=== PATIENT | male | born 1995 | race Two or more races ===

== ENCOUNTER 2016-05-10 06:48 | Emergency (ER) | payer OTHER ==
[2016-05-10] MEDS ORDERED: METOCLOPRAMIDE 10 MG TAB As Ordered ONE (07:43)
[2016-05-10] MEDS ORDERED: ACETAMINOPHEN 325 MG TAB As Ordered ONE (07:44)
--- NOTE | 2016-05-10 08:17 | REP ---
Clinical: New onset headache . Comparison: None . Findings: The ventricles, sulci, and cisterns are normal in position and appearance. Hector-white differentiation is maintained. No acute intracranial hemorrhage, mass/mass effect, pathology or trauma/injury. No evidence for acute infarction. No extra-axial fluid collection. Calvarium is intact. Paranasal sinuses and mastoid air cells are clear. Impression: Normal noncontrast head CT. No evidence for acute intracranial pathology or trauma/injury. Signed by Constantnio Salazar MD 05/10/2016 08:08 A
[2016-05-10 08:21] LABS: ALBUMIN 4.1 GM/DL (3.2-5.2); ALBUMIN/GLOBULIN RATIO 1.08 (1.00-1.93); ALKALINE PHOSPHATASE 83 U/L (45-117); ALT/SGPT 46 U/L (12-78); ANION GAP 8 MEQ/L (8-16); AST/SGOT 18 U/L (15-37); BILIRUBIN,TOTAL 0.2 MG/DL (0.2-1.0); BLOOD UREA NITROGEN 14 MG/DL (7-18); CALCIUM LEVEL 9.2 MG/DL (8.5-10.1); CARBON DIOXIDE LEVEL 27 MEQ/L (21-32); CHLORIDE LEVEL 111 MEQ/L (98-107); CREATININE FOR GFR 1.22 MG/DL (0.70-1.30); GLOMERULAR FILTRATION RATE > 60.0 (>60); GLUCOSE, FASTING 117 MG/DL (70-105); POTASSIUM SERUM 4.4 MEQ/L (3.5-5.1); SODIUM LEVEL 146 MEQ/L (136-145); TOTAL PROTEIN 7.9 GM/DL (6.4-8.2)
[2016-05-10 08:42] LABS: BASO % 0.5 % (0.0-1.0); EOS # 0.1 K/mm3 (0.0-0.50); EOS % 0.8 % (0.0-3.0); LARGE UNSTAINED CELL # 0.3 K/mm3 (0.0-0.4); LARGE UNSTAINED CELL % 3.1 % (0.0-4.0); LYMPH # 2.7 K/mm3 (1.5-6.5); LYMPH % 31.7 % (24.0-44.0); MEAN CORPUSCULAR HEMOGLOBIN 27.4 pg (27.0-33.0); MEAN CORPUSCULAR HGB CONC 32.5 g/dl (32.0-36.5); MEAN CORPUSCULAR VOLUME 84.3 fl (80.0-96.0); MONO # 0.7 K/mm3 (0.0-0.8); MONO % 8.5 % (0.0-5.0); NEUTROPHILS # 4.8 K/mm3 (1.8-7.7); NEUTROPHILS % 55.4 % (36.0-66.0); PLATELET COUNT, AUTOMATED 248 k/mm3 (150-450); RED CELL DISTRIBUTION WIDTH 13.6 % (11.5-14.5); WHITE BLOOD COUNT 8.7 K/mm3 (4.0-10.0)
[2016-05-10] MEDS ORDERED: AZITHROMYCIN 250 MG TAB As Ordered ONE (09:11)
--- NOTE | 2016-05-10 09:20 | EDDOCDS ---
Nurse's Notes [facility] Name: Clfif Vasquez Age: 21 yrs Sex: Male : 1995 Arrival Date: 05/10/2016 Time: 06:48 Bed I2 / M2 Private MD: Diagnosis: Acute sinusitis;Headache-Acute Presentation: 05/10 06:51 Presenting complaint: Patient states: for the past 3 weeks he gets a massive headache nn1 during intercourse. Patient reports tightening of the neck at this time. Reports mild headache at this time. Headaches last a long time following intercourse, relieved with sleep or ibuprofen. This patient has no additional risk factors. Suicide/Homicide risk assessment- the patient denies having any suicidal and/or homicidal ideations and does not present with any other emotional, behavioral or mental health complaints. 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 Transition of care: patient was not received from another setting of care. 06:51 Acuity: SUZETTE Level 4 nn1 06:51 Method Of Arrival: Walkin/Carried/Asstd nn1 09:18 Adult Sepsis Screening: The patient does not have new or worsening altered mentation. ead Patient's respiratory rate is less than 22. Systolic blood pressure is greater than 100. Patient has a qSOFA score of 0- Negative Sepsis Screen. Triage Assessment: 06:56 Headache History: This headache is more severe than any previous headaches the patient nn1 has experienced. General: Appears in no apparent distress, comfortable, Behavior is appropriate for age, cooperative. Pain: Location: head Pain currently is 3 out of 10 on a pain scale. At worst was 10 out of 10 on a pain scale. Pain began 3 weeks ago Also complains of no other associated symptoms. HIV screening NA for this visit Offered previously. The patient is triaged at the bedside. See Assessment in Nurses Notes section of ED record. Neurological: Level of Consciousness is awake, alert, obeys commands, Oriented to person, place, time, Moves all extremities. Speech is normal, Facial symmetry appears normal, Respiratory: No deficits noted. Derm: Skin is normal. Historical: - Allergies: No known drug Allergies; - Home Meds: 1. none - PMHx: none; - PSHx: none; - Social history: Smoking status: Patient uses tobacco products, heavy tobacco smoker. No barriers to communication noted, The patient speaks fluent Estonian, Speaks appropriately for age. - Family history: Not pertinent. - : The pt / caregiver states he / she is not on anticoagulants. Home medication list is obtained from the patient. - Exposure Risk Screening:: None identified. Screenin:57 Screening information is obtained from the patient. Fall risk: No risks identified. jmk Assistance ADL's: requires no assistance with activities of daily living. Abuse/DV Screen: The patient / caregiver reports he/she is: not in a situation that causes fear, pain or injury. Nutritional screening: No deficits noted. Advance Directives: Currently, there is no health care proxy. There is no active DNR order. There is no living will. There is no Power of Motor Racer. Advance directive information has not previously been placed in an [facility] medical record. home support is adequate. Assessment: 07:57 General: Appears in no apparent distress, skin warm and dry color satisfactory. Moist jmk pink oral mucosa. Indicates 3/10 discomfort to occipital region. alert and oriented x 3. denies photophobia. Pain: Location: left occipital area and right occipital area. Neurological: Level of Consciousness is awake, alert, Oriented to person, place, time. 09:10 General: Appears in no apparent distress, comfortable. Neurological: Level of ead Consciousness is awake, alert, Oriented to person, place, time. Respiratory: Airway is patent Respiratory effort is even, unlabored. Derm: Skin is pink, warm & dry. Vital Signs: 06:54 BP 167 / 80; Pulse 102; Resp 18; Temp 98.4; Pulse Ox 98% on R/A; Weight 99.79 kg; nn1 Height 5 ft. 5 in. (165.10 cm); Pain 3/10; 07:31 BP 134 / 78 LA Sitting (man/lg); Pulse 84; Resp 18; nb2 09:07 BP 139 / 69; Pulse 87; Resp 18; Temp 98.6(O); Pulse Ox 97% on R/A; Pain 0/10; nb2 06:54 Body Mass Index 36.61 (99.79 kg, 165.10 cm) nn1 Vitals: 06:54 Log In Time: May 10, 2016 at 06:50. nn1 ED Course: 06:49 Patient visited by Saida Landry Reg. hs2 06:49 Patient moved to Waiting hs2 06:53 Triage Initiated nn1 07:02 Patient moved to I2 / M2 mcp 07:07 Dayna Bazan PA-C is PHCP. ef1 07:07 Heidi Beltran MD is Attending Physician. ef1 07:07 Patient visited by Dayna Bazan PA-C. ef1 07:31 Patient visited by Delicia Griffin. nb2 07:51 CBC with Diff Sent. nb2 07:51 Complete Comphrensive Metabolic Sent. nb2 07:57 The patient / caregiver is instructed regarding the plan of care and ED course. jmk 07:57 No IV's were initiated during this patient's visit. jmk 08:21 Patient name changed from Cliff\S\\S\Vasquez Jr\S\ to Cliff\S\R\S\Vasquez. EDMS 08:32 Patient visited by Dayna Bazan PA-C. ef1 08:43 CT Head Without Contrast Returned. EDMS 08:49 [facility] Payment Agreement was scanned into [email or web address] and attached to record. lg 08:58 Patient visited by Dayna Bazan PA-C. ef1 09:03 [facility] is Referral Physician. ef1 09:08 Patient visited by Delicia Griffin. nb2 09:16 No procedures done that require assistance. ead Administered Medications: 07:54 Drug: Metoclopramide 10 mg [metoclopramide 10 mg tablet (1 tabs)] Route: PO; jmk 07:54 Drug: Acetaminophen 975 mg [acetaminophen 325 mg tablet (3 tabs)] Route: PO; jmk 09:12 Drug: azithromycin 500 mg [azithromycin 250 mg tablet (2 tabs)] Route: PO; ead Order Results: Lab Order: CBC with Diff; SPEC'M 05/10/16 07:50 Test: WHITE BLOOD COUNT; Value: 8.7; Range: 4.0-10.0; Units: K/mm3; Status: F Test: RED BLOOD COUNT; Value: 5.61; Range: 4.30-6.10; Units: M/mm3; Status: F Test: HEMOGLOBIN; Value: 15.4; Range: 14.0-18.0; Units: g/dl; Status: F Test: HEMATOCRIT; Value: 47.3; Range: 42.0-52.0; Units: %; Status: F Test: MEAN CORPUSCULAR VOLUME; Value: 84.3; Range: 80.0-96.0; Units: fl; Status: F Test: MEAN CORPUSCULAR HEMOGLOBIN; Value: 27.4; Range: 27.0-33.0; Units: pg; Status: F Test: MEAN CORPUSCULAR HGB CONC; Value: 32.5; Range: 32.0-36.5; Units: g/dl; Status: F Test: RED CELL DISTRIBUTION WIDTH; Value: 13.6; Range: 11.5-14.5; Units: %; Status: F Test: PLATELET COUNT, AUTOMATED; Value: 248; Range: 150-450; Units: k/mm3; Status: F Test: NEUTROPHILS %; Value: 55.4; Range: 36.0-66.0; Units: %; Status: F Test: LYMPH %; Value: 31.7; Range: 24.0-44.0; Units: %; Status: F Test: MONO %; Value: 8.5; Range: 0.0-5.0; Abnormal: Above high normal; Units: %; Status: F Test: EOS %; Value: 0.8; Range: 0.0-3.0; Units: %; Status: F Test: BASO %; Value: 0.5; Range: 0.0-1.0; Units: %; Status: F Test: LARGE UNSTAINED CELL %; Value: 3.1; Range: 0.0-4.0; Units: %; Status: F Test: NEUTROPHILS #; Value: 4.8; Range: 1.8-7.7; Units: K/mm3; Status: F Test: LYMPH #; Value: 2.7; Range: 1.5-6.5; Units: K/mm3; Status: F Test: MONO #; Value: 0.7; Range: 0.0-0.8; Units: K/mm3; Status: F Test: EOS #; Value: 0.1; Range: 0.0-0.50; Units: K/mm3; Status: F Test: BASO #; Value: 0.0; Range: 0.0-0.2; Units: K/mm3; Status: F Test: LARGE UNSTAINED CELL #; Value: 0.3; Range: 0.0-0.4; Units: K/mm3; Status: F Lab Order: Complete Comphrensive Metabolic; SPEC'M 05/10/16 07:50 Test: GLUCOSE, FASTING; Value: 117; Range: 70-105; Abnormal: Above high normal; Units: MG/DL; Status: F Test: BLOOD UREA NITROGEN; Value: 14; Range: 7-18; Units: MG/DL; Status: F Test: CREATININE FOR GFR; Value: 1.22; Range: 0.70-1.30; Units: MG/DL; Status: F Test: GLOMERULAR FILTRATION RATE; Value: > 60.0; Range: >60; Status: F Test: SODIUM LEVEL; Value: 146; Range: 136-145; Abnormal: Above high normal; Units: MEQ/L; Status: F Test: POTASSIUM SERUM; Value: 4.4; Range: 3.5-5.1; Units: MEQ/L; Status: F Test: CHLORIDE LEVEL; Value: 111; Range: 98-107; Abnormal: Above high normal; Units: MEQ/L; Status: F Test: CARBON DIOXIDE LEVEL; Value: 27; Range: 21-32; Units: MEQ/L; Status: F Test: ANION GAP; Value: 8; Range: 8-16; Units: MEQ/L; Status: F Test: CALCIUM LEVEL; Value: 9.2; Range: 8.5-10.1; Units: MG/DL; Status: F Test: AST/SGOT; Value: 18; Range: 15-37; Units: U/L; Status: F Test: ALT/SGPT; Value: 46; Range: 12-78; Units: U/L; Status: F Test: ALKALINE PHOSPHATASE; Value: 83; Range: 45-117; Units: U/L; Status: F Test: BILIRUBIN,TOTAL; Value: 0.2; Range: 0.2-1.0; Units: MG/DL; Status: F Test: TOTAL PROTEIN; Value: 7.9; Range: 6.4-8.2; Units: GM/DL; Status: F Test: ALBUMIN; Value: 4.1; Range: 3.2-5.2; Units: GM/DL; Status: F Test: ALBUMIN/GLOBULIN RATIO; Value: 1.08; Range: 1.00-1.93; Status: F Test Note: ; Units are mL/min/1.73 m2 Chronic Kidney Disease Staging per NKF: Stage I & II GFR >=60 Normal to Mildly Decreased Stage III GFR 30-59 Moderately Decreased Stage IV GFR 15-29 Severely Decreased Stage V GFR <15 Very Little GFR Left ESRD GFR <15 on COPYHOLDER Radiology Order: CT Head Without Contrast Test: CT Head Without Contrast REASON FOR EXAMINATION: new onset headaches; Clinical: New onset headache .; ; Comparison: None .; ; Findings:; The ventricles, sulci, and cisterns are normal in position and appearance.; Hector-white differentiation is maintained. No acute intracranial hemorrhage,; mass/mass effect, pathology or trauma/injury. No evidence for acute infarction.; No extra-axial fluid collection. Calvarium is intact. Paranasal sinuses and; mastoid air cells are clear.; ; Impression:; Normal noncontrast head CT.; No evidence for acute intracranial pathology or trauma/injury.; ; ; Signed by; Constantino Salazar MD 05/10/2016 08:08 A; Outcome: 09:03 Discharge ordered by Provider. ef1 09:16 Discharge Assessment: Patient awake and alert. obeys commands, Oriented to person, ead place and time. patient administered narcotics - no. The following High Risk Discharge criteria are identified: None. Discharged to home ambulatory, with significant other. Condition: improved. Discharge instructions given to patient, Instructed on discharge instructions, follow up and referral plans. medication usage, Demonstrated understanding of instructions, medications, Pt was receptive of discharge instructions/ teaching. Prescriptions given X 5. CT Study completed. Property sent home with patient. 09:18 Patient left the ED. ead Signatures: Dispatcher [employer] EDMS Donato Coronel RN RN jmk Peters, Mary, RN RN mcp Ganter, LoriLee, Reg Reg lg Dayna Bazan, PA-C PA-C ef1 Risa Khan RN RN ead Nunez, Nikkole, RN RN nn1 Saida Landry, Reg Reg hs2 Delicia Griffin2 MTDD
--- NOTE | 2016-05-10 09:20 | EDDOCDS ---
Physician Documentation [facility] Name: Cliff Vasquez Age: 21 yrs Sex: Male : 1995 Arrival Date: 05/10/2016 Time: 06:48 Bed I2 / M2 Private MD: Disposition: 05/10/16 09:03 Discharged to Home/Self Care. Impression: Acute sinusitis, Headache - Acute. - Condition is Stable. - Discharge Instructions: Sinusitis, Ezsd-hi-Gnub, General Headache Without Cause, Wqlr-hl-Aeug. - Prescriptions for Ibuprofen 800 mg Oral Tablet - take 1 tablet by ORAL route every 8 hours As needed take with food; 30 tablet. Reglan 10 mg Oral Tablet - take 1 tablet by ORAL route every 6 hours take 30 minutes before meals and at bedtime; 20 tablet. Claritin 10 mg Oral Tablet - take 1 tablet by ORAL route once daily As needed; 30 tablet. Zithromax 250 mg Oral Tablet - take 1 tablet by ORAL route once daily start tomorrow; 4 tablet. Mucinex 600 mg - take 1 tablet by ORAL route 2 times per day; 30 tablet. - Medication Reconciliation, Local Pharmacy Hours form. - Follow up: [facility] [place]; When: 1 - 2 days; Reason: Recheck today's complaints, Continuance of care. Follow up: Emergency Department; Reason: Worsening of conditions. - Problem is new. - Symptoms have improved. Historical: - Allergies: No known drug Allergies; - Home Meds: 1. none - PMHx: none; - PSHx: none; - Social history: Smoking status: Patient uses tobacco products, heavy tobacco smoker. No barriers to communication noted, The patient speaks fluent Tuvaluan, Speaks appropriately for age. - Family history: Not pertinent. - : The pt / caregiver states he / she is not on anticoagulants. Home medication list is obtained from the patient. - Exposure Risk Screening:: None identified. Vital Signs: 05/10 06:54 BP 167 / 80; Pulse 102; Resp 18; Temp 98.4; Pulse Ox 98% on R/A; Weight 99.79 kg / 220 nn1 lbs; Height 5 ft. 5 in. (165.10 cm); Pain 3/10; 07:31 BP 134 / 78 LA Sitting (man/lg); Pulse 84; Resp 18; nb2 09:07 BP 139 / 69; Pulse 87; Resp 18; Temp 98.6(O); Pulse Ox 97% on R/A; Pain 0/10; nb2 06:54 Body Mass Index 36.61 (99.79 kg, 165.10 cm) nn1 MDM: 07:29 CT Head Without Contrast Ordered. EDMS 07:41 Metoclopramide 10 mg PO once ordered. ef1 07:41 Acetaminophen Tablet 975 mg PO once ordered. ef1 07:42 CBC with Diff Ordered. EDMS 07:42 Complete Comphrensive Metabolic Ordered. EDMS 08:06 Financial registration complete. lg 08:35 Complete Comphrensive Metabolic Reviewed. ef1 08:49 [facility] Payment Agreement was scanned into [employer] and attached to record. lg 08:58 CBC with Diff Reviewed. ef1 08:58 CT Head Without Contrast Reviewed. ef1 09:00 azithromycin 500 mg PO once ordered. ef1 Administered Medications: 07:54 Drug: Metoclopramide 10 mg [metoclopramide 10 mg tablet (1 tabs)] Route: PO; jmk 07:54 Drug: Acetaminophen 975 mg [acetaminophen 325 mg tablet (3 tabs)] Route: PO; jmk 09:12 Drug: azithromycin 500 mg [azithromycin 250 mg tablet (2 tabs)] Route: PO; travon Signatures: Dispatcher [employer] EDMS Donato Coronel,RN RN Mago Hogan, Lawrence Reg lg Dayna Bazan PASebastiánC PAEmily ef1 Risa Khan RN RN ead Nunez, NikkoleRN RN nn1 The chart was reviewed and I authenticate all verbal orders and agree with the evaluation and treatment provided.Corrections: (The following items were deleted from the chart) 07:16 07[facility]08 [facility]. ef1 ef1 Attachments: 08:[address] [facility] Payment Agreement lg MTDD
--- NOTE | 2016-05-12 10:19 | EDDOCDS ---
Physician Documentation [facility] Name: Cliff Vasquez Age: 21 yrs Sex: Male : 1995 Arrival Date: 05/10/2016 Time: 06:48 Bed I2 / M2 Private MD: Disposition: 05/10/16 09:03 Discharged to Home/Self Care. Impression: Acute sinusitis, Headache - Acute. - Condition is Stable. - Discharge Instructions: Sinusitis, Mogf-wi-Lsrc, General Headache Without Cause, Uekl-ov-Tbtm. - Prescriptions for Ibuprofen 800 mg Oral Tablet - take 1 tablet by ORAL route every 8 hours As needed take with food; 30 tablet. Reglan 10 mg Oral Tablet - take 1 tablet by ORAL route every 6 hours take 30 minutes before meals and at bedtime; 20 tablet. Claritin 10 mg Oral Tablet - take 1 tablet by ORAL route once daily As needed; 30 tablet. Zithromax 250 mg Oral Tablet - take 1 tablet by ORAL route once daily start tomorrow; 4 tablet. Mucinex 600 mg - take 1 tablet by ORAL route 2 times per day; 30 tablet. - Medication Reconciliation, Local Pharmacy Hours form. - Follow up: [facility]; When: 1 - 2 days; Reason: Recheck today's complaints, Continuance of care. Follow up: Emergency Department; Reason: Worsening of conditions. - Problem is new. - Symptoms have improved. Historical: - Allergies: No known drug Allergies; - Home Meds: 1. none - PMHx: none; - PSHx: none; - Social history: Smoking status: Patient uses tobacco products, heavy tobacco smoker. No barriers to communication noted, The patient speaks fluent Egyptian, Speaks appropriately for age. - Family history: Not pertinent. - : The pt / caregiver states he / she is not on anticoagulants. Home medication list is obtained from the patient. - Exposure Risk Screening:: None identified. Vital Signs: 05/10 06:54 BP 167 / 80; Pulse 102; Resp 18; Temp 98.4; Pulse Ox 98% on R/A; Weight 99.79 kg / 220 nn1 lbs; Height 5 ft. 5 in. (165.10 cm); Pain 3/10; 07:31 BP 134 / 78 LA Sitting (man/lg); Pulse 84; Resp 18; nb2 09:07 BP 139 / 69; Pulse 87; Resp 18; Temp 98.6(O); Pulse Ox 97% on R/A; Pain 0/10; nb2 06:54 Body Mass Index 36.61 (99.79 kg, 165.10 cm) nn1 MDM: 07:29 CT Head Without Contrast Ordered. EDMS 07:41 Metoclopramide 10 mg PO once ordered. ef1 07:41 Acetaminophen Tablet 975 mg PO once ordered. ef1 07:42 CBC with Diff Ordered. EDMS 07:42 Complete Comphrensive Metabolic Ordered. EDMS 08:06 Financial registration complete. lg 08:35 Complete Comphrensive Metabolic Reviewed. ef1 08:49 [facility] Payment Agreement was scanned into [employer] and attached to record. lg 08:58 CBC with Diff Reviewed. ef1 08:58 CT Head Without Contrast Reviewed. ef1 09:00 azithromycin 500 mg PO once ordered. ef1 14:08 T-Sheet-- Draft Copy was scanned into [employer] and attached to record. gb 14:08 Radiology Report was scanned into [employer] and attached to record. Administered Medications: 07:54 Drug: Metoclopramide 10 mg [metoclopramide 10 mg tablet (1 tabs)] Route: PO; k 07:54 Drug: Acetaminophen 975 mg [acetaminophen 325 mg tablet (3 tabs)] Route: PO; k 09:12 Drug: azithromycin 500 mg [azithromycin 250 mg tablet (2 tabs)] Route: PO; travon Signatures: Dispatcher [employer] EDMS Donato Coronel,Temitope Banuelos RN, Reg Reg gb Mago Hoyos, Reg Reg lg Dayna Bazan, PA-C PA-C ef1 Risa Khan RN RN ead Nunez, NikkoleRN PB nn1 The chart was reviewed and I authenticate all verbal orders and agree with the evaluation and treatment provided.Corrections: (The following items were deleted from the chart) 07:16 07:08 [facility]. Nursing Order ordered. ef1 ef1 Attachments: 08:49 [facility] Payment Agreement lg 14:08 T-Sheet-- Draft Copy gb Chart Complete MTDD
--- NOTE | 2016-05-12 10:19 | EDDOCDS ---
Nurse's Notes [facility] Name: Cliff Vasquez Age: 21 yrs Sex: Male : 1995 Arrival Date: 05/10/2016 Time: 06:48 Bed I2 / M2 Private MD: Diagnosis: Acute sinusitis;Headache-Acute Presentation: 05/10 06:51 Presenting complaint: Patient states: for the past 3 weeks he gets a massive headache nn1 during intercourse. Patient reports tightening of the neck at this time. Reports mild headache at this time. Headaches last a long time following intercourse, relieved with sleep or ibuprofen. This patient has no additional risk factors. Suicide/Homicide risk assessment- the patient denies having any suicidal and/or homicidal ideations and does not present with any other emotional, behavioral or mental health complaints. 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 Transition of care: patient was not received from another setting of care. 06:51 Acuity: SUEZTTE Level 4 nn1 06:51 Method Of Arrival: Walkin/Carried/Asstd nn1 09:18 Adult Sepsis Screening: The patient does not have new or worsening altered mentation. ead Patient's respiratory rate is less than 22. Systolic blood pressure is greater than 100. Patient has a qSOFA score of 0- Negative Sepsis Screen. Triage Assessment: 06:56 Headache History: This headache is more severe than any previous headaches the patient nn1 has experienced. General: Appears in no apparent distress, comfortable, Behavior is appropriate for age, cooperative. Pain: Location: head Pain currently is 3 out of 10 on a pain scale. At worst was 10 out of 10 on a pain scale. Pain began 3 weeks ago Also complains of no other associated symptoms. HIV screening NA for this visit Offered previously. The patient is triaged at the bedside. See Assessment in Nurses Notes section of ED record. Neurological: Level of Consciousness is awake, alert, obeys commands, Oriented to person, place, time, Moves all extremities. Speech is normal, Facial symmetry appears normal, Respiratory: No deficits noted. Derm: Skin is normal. Historical: - Allergies: No known drug Allergies; - Home Meds: 1. none - PMHx: none; - PSHx: none; - Social history: Smoking status: Patient uses tobacco products, heavy tobacco smoker. No barriers to communication noted, The patient speaks fluent Bahraini, Speaks appropriately for age. - Family history: Not pertinent. - : The pt / caregiver states he / she is not on anticoagulants. Home medication list is obtained from the patient. - Exposure Risk Screening:: None identified. Screenin:57 Screening information is obtained from the patient. Fall risk: No risks identified. jmk Assistance ADL's: requires no assistance with activities of daily living. Abuse/DV Screen: The patient / caregiver reports he/she is: not in a situation that causes fear, pain or injury. Nutritional screening: No deficits noted. Advance Directives: Currently, there is no health care proxy. There is no active DNR order. There is no living will. There is no Power of Clinical Sales Consultant. Advance directive information has not previously been placed in an [facility] medical record. home support is adequate. Assessment: 07:57 General: Appears in no apparent distress, skin warm and dry color satisfactory. Moist jmk pink oral mucosa. Indicates 3/10 discomfort to occipital region. alert and oriented x 3. denies photophobia. Pain: Location: left occipital area and right occipital area. Neurological: Level of Consciousness is awake, alert, Oriented to person, place, time. 09:10 General: Appears in no apparent distress, comfortable. Neurological: Level of ead Consciousness is awake, alert, Oriented to person, place, time. Respiratory: Airway is patent Respiratory effort is even, unlabored. Derm: Skin is pink, warm & dry. Vital Signs: 06:54 BP 167 / 80; Pulse 102; Resp 18; Temp 98.4; Pulse Ox 98% on R/A; Weight 99.79 kg; nn1 Height 5 ft. 5 in. (165.10 cm); Pain 3/10; 07:31 BP 134 / 78 LA Sitting (man/lg); Pulse 84; Resp 18; nb2 09:07 BP 139 / 69; Pulse 87; Resp 18; Temp 98.6(O); Pulse Ox 97% on R/A; Pain 0/10; nb2 06:54 Body Mass Index 36.61 (99.79 kg, 165.10 cm) nn1 Vitals: 06:54 Log In Time: May 10, 2016 at 06:50. nn1 ED Course: 06:49 Patient visited by Saida Landry Reg. hs2 06:49 Patient moved to Waiting hs2 06:53 Triage Initiated nn1 07:02 Patient moved to I2 / M2 mcp 07:07 [facility] ef1 07:07 Heidi Beltran MD is Attending Physician. ef1 07:07 Patient visited by Dayna Bazan PA-C. ef1 07:31 Patient visited by Delicia Griffin. nb2 07:51 CBC with Diff Sent. nb2 07:51 Complete Comphrensive Metabolic Sent. nb2 07:57 The patient / caregiver is instructed regarding the plan of care and ED course. jmk 07:57 No IV's were initiated during this patient's visit. jmk 08:21 Patient name changed from Cliff\S\\S\Vasquez Jr\S\ to Cliff\S\R\S\Vasquez. EDMS 08:32 Patient visited by Dayna Bazan PA-C. ef1 08:43 CT Head Without Contrast Returned. EDMS 08:49 [facility] [place] was scanned into [employer] and attached to record. lg 08:58 Patient visited by Dayna Bazan PA-C. ef1 09:03 [facility]. ef1 09:08 Patient visited by Delicia Griffin. nb2 09:16 No procedures done that require assistance. ead 14:08 T-Sheet-- Draft Copy was scanned into [employer] and attached to record. gb 14:08 Radiology Report was scanned into [employer] and attached to record. gb Administered Medications: 07:54 Drug: Metoclopramide 10 mg [metoclopramide 10 mg tablet (1 tabs)] Route: PO; jmk 07:54 Drug: Acetaminophen 975 mg [acetaminophen 325 mg tablet (3 tabs)] Route: PO; jmk 09:12 Drug: azithromycin 500 mg [azithromycin 250 mg tablet (2 tabs)] Route: PO; ead Order Results: Lab Order: CBC with Diff; SPEC'M 05/10/16 07:50 Test: WHITE BLOOD COUNT; Value: 8.7; Range: 4.0-10.0; Units: K/mm3; Status: F Test: RED BLOOD COUNT; Value: 5.61; Range: 4.30-6.10; Units: M/mm3; Status: F Test: HEMOGLOBIN; Value: 15.4; Range: 14.0-18.0; Units: g/dl; Status: F Test: HEMATOCRIT; Value: 47.3; Range: 42.0-52.0; Units: %; Status: F Test: MEAN CORPUSCULAR VOLUME; Value: 84.3; Range: 80.0-96.0; Units: fl; Status: F Test: MEAN CORPUSCULAR HEMOGLOBIN; Value: 27.4; Range: 27.0-33.0; Units: pg; Status: F Test: MEAN CORPUSCULAR HGB CONC; Value: 32.5; Range: 32.0-36.5; Units: g/dl; Status: F Test: RED CELL DISTRIBUTION WIDTH; Value: 13.6; Range: 11.5-14.5; Units: %; Status: F Test: PLATELET COUNT, AUTOMATED; Value: 248; Range: 150-450; Units: k/mm3; Status: F Test: NEUTROPHILS %; Value: 55.4; Range: 36.0-66.0; Units: %; Status: F Test: LYMPH %; Value: 31.7; Range: 24.0-44.0; Units: %; Status: F Test: MONO %; Value: 8.5; Range: 0.0-5.0; Abnormal: Above high normal; Units: %; Status: F Test: EOS %; Value: 0.8; Range: 0.0-3.0; Units: %; Status: F Test: BASO %; Value: 0.5; Range: 0.0-1.0; Units: %; Status: F Test: LARGE UNSTAINED CELL %; Value: 3.1; Range: 0.0-4.0; Units: %; Status: F Test: NEUTROPHILS #; Value: 4.8; Range: 1.8-7.7; Units: K/mm3; Status: F Test: LYMPH #; Value: 2.7; Range: 1.5-6.5; Units: K/mm3; Status: F Test: MONO #; Value: 0.7; Range: 0.0-0.8; Units: K/mm3; Status: F Test: EOS #; Value: 0.1; Range: 0.0-0.50; Units: K/mm3; Status: F Test: BASO #; Value: 0.0; Range: 0.0-0.2; Units: K/mm3; Status: F Test: LARGE UNSTAINED CELL #; Value: 0.3; Range: 0.0-0.4; Units: K/mm3; Status: F Lab Order: Complete Comphrensive Metabolic; SPEC'M 05/10/16 07:50 Test: GLUCOSE, FASTING; Value: 117; Range: 70-105; Abnormal: Above high normal; Units: MG/DL; Status: F Test: BLOOD UREA NITROGEN; Value: 14; Range: 7-18; Units: MG/DL; Status: F Test: CREATININE FOR GFR; Value: 1.22; Range: 0.70-1.30; Units: MG/DL; Status: F Test: GLOMERULAR FILTRATION RATE; Value: > 60.0; Range: >60; Status: F Test: SODIUM LEVEL; Value: 146; Range: 136-145; Abnormal: Above high normal; Units: MEQ/L; Status: F Test: POTASSIUM SERUM; Value: 4.4; Range: 3.5-5.1; Units: MEQ/L; Status: F Test: CHLORIDE LEVEL; Value: 111; Range: 98-107; Abnormal: Above high normal; Units: MEQ/L; Status: F Test: CARBON DIOXIDE LEVEL; Value: 27; Range: 21-32; Units: MEQ/L; Status: F Test: ANION GAP; Value: 8; Range: 8-16; Units: MEQ/L; Status: F Test: CALCIUM LEVEL; Value: 9.2; Range: 8.5-10.1; Units: MG/DL; Status: F Test: AST/SGOT; Value: 18; Range: 15-37; Units: U/L; Status: F Test: ALT/SGPT; Value: 46; Range: 12-78; Units: U/L; Status: F Test: ALKALINE PHOSPHATASE; Value: 83; Range: 45-117; Units: U/L; Status: F Test: BILIRUBIN,TOTAL; Value: 0.2; Range: 0.2-1.0; Units: MG/DL; Status: F Test: TOTAL PROTEIN; Value: 7.9; Range: 6.4-8.2; Units: GM/DL; Status: F Test: ALBUMIN; Value: 4.1; Range: 3.2-5.2; Units: GM/DL; Status: F Test: ALBUMIN/GLOBULIN RATIO; Value: 1.08; Range: 1.00-1.93; Status: F Test Note: ; Units are mL/min/1.73 m2 Chronic Kidney Disease Staging per NKF: Stage I & II GFR >=60 Normal to Mildly Decreased Stage III GFR 30-59 Moderately Decreased Stage IV GFR 15-29 Severely Decreased Stage V GFR <15 Very Little GFR Left ESRD GFR <15 on ASSISTANT SOFTBALL COACH Radiology Order: CT Head Without Contrast Test: CT Head Without Contrast REASON FOR EXAMINATION: new onset headaches; Clinical: New onset headache .; ; Comparison: None .; ; Findings:; The ventricles, sulci, and cisterns are normal in position and appearance.; Hector-white differentiation is maintained. No acute intracranial hemorrhage,; mass/mass effect, pathology or trauma/injury. No evidence for acute infarction.; No extra-axial fluid collection. Calvarium is intact. Paranasal sinuses and; mastoid air cells are clear.; ; Impression:; Normal noncontrast head CT.; No evidence for acute intracranial pathology or trauma/injury.; ; ; Signed by; Constantino Salazar MD 05/10/2016 08:08 A; Outcome: 09:03 Discharge ordered by Provider. ef1 09:16 Discharge Assessment: Patient awake and alert. obeys commands, Oriented to person, ead place and time. patient administered narcotics - no. The following High Risk Discharge criteria are identified: None. Discharged to home ambulatory, with significant other. Condition: improved. Discharge instructions given to patient, Instructed on discharge instructions, follow up and referral plans. medication usage, Demonstrated understanding of instructions, medications, Pt was receptive of discharge instructions/ teaching. Prescriptions given X 5. CT Study completed. Property sent home with patient. 09:18 Patient left the ED. ead Signatures: Dispatcher [employer] EDDonato CoteRN Radha Dior RN Temitope Metcalf mcp, Reg Reg gb Ganmathew, Mago, Reg Reg lg Beni, Dayna, PA-C PA-C ef1 Risa KhanRN Segundo Ash RN RN nn1 Saida Landry Reg Reg hs2 Delicia Griffin nb2 Chart Complete MTDD
--- NOTE | 2016-05-12 10:19 | EDDOCDS ---
Physician Documentation [facility] Name: Cliff Vasquez Age: 21 yrs Sex: Male : 1995 Arrival Date: 05/10/2016 Time: 06:48 Bed I2 / M2 Private MD: Disposition: 05/10/16 09:03 Discharged to Home/Self Care. Impression: Acute sinusitis, Headache - Acute. - Condition is Stable. - Discharge Instructions: Sinusitis, [id number], General Headache Without Cause, Ahur-mr-Cfcl. - Prescriptions for Ibuprofen 800 mg Oral Tablet - take 1 tablet by ORAL route every 8 hours As needed take with food; 30 tablet. Reglan 10 mg Oral Tablet - take 1 tablet by ORAL route every 6 hours take 30 minutes before meals and at bedtime; 20 tablet. Claritin 10 mg Oral Tablet - take 1 tablet by ORAL route once daily As needed; 30 tablet. Zithromax 250 mg Oral Tablet - take 1 tablet by ORAL route once daily start tomorrow; 4 tablet. Mucinex 600 mg - take 1 tablet by ORAL route 2 times per day; 30 tablet. - Medication Reconciliation, Local Pharmacy Hours form. - Follow up: [facility] [place]; When: 1 - 2 days; Reason: Recheck today's complaints, Continuance of care. Follow up: Emergency Department; Reason: Worsening of conditions. - Problem is new. - Symptoms have improved. Historical: - Allergies: No known drug Allergies; - Home Meds: 1. none - PMHx: none; - PSHx: none; - Social history: Smoking status: Patient uses tobacco products, heavy tobacco smoker. No barriers to communication noted, The patient speaks fluent [place], Speaks appropriately for age. - Family history: Not pertinent. - : The pt / caregiver states he / she is not on anticoagulants. Home medication list is obtained from the patient. - Exposure Risk Screening:: None identified. Vital Signs: 05/10 06:54 BP 167 / 80; Pulse 102; Resp 18; Temp 98.4; Pulse Ox 98% on R/A; Weight 99.79 kg / 220 nn1 lbs; Height 5 ft. 5 in. (165.10 cm); Pain 3/10; 07:31 BP 134 / 78 LA Sitting (man/lg); Pulse 84; Resp 18; nb2 09:07 BP 139 / 69; Pulse 87; Resp 18; Temp 98.6(O); Pulse Ox 97% on R/A; Pain 0/10; nb2 06:54 Body Mass Index 36.61 (99.79 kg, 165.10 cm) nn1 MDM: 07:29 CT Head Without Contrast Ordered. EDMS 07:41 Metoclopramide 10 mg PO once ordered. ef1 07:41 Acetaminophen Tablet 975 mg PO once ordered. ef1 07:42 CBC with Diff Ordered. EDMS 07:42 Complete Comphrensive Metabolic Ordered. EDMS 08:06 Financial registration complete. lg 08:35 Complete Comphrensive Metabolic Reviewed. ef1 08:49 [facility] Payment Agreement was scanned into [employer] and attached to record. lg 08:58 CBC with Diff Reviewed. ef1 08:58 CT Head Without Contrast Reviewed. ef1 09:00 azithromycin 500 mg PO once ordered. ef1 14:08 T-Sheet-- Draft Copy was scanned into [employer] and attached to record. gb 14:08 Radiology Report was scanned into [employer] and attached to record. Administered Medications: 07:54 Drug: Metoclopramide 10 mg [metoclopramide 10 mg tablet (1 tabs)] Route: PO; k 07:54 Drug: Acetaminophen 975 mg [acetaminophen 325 mg tablet (3 tabs)] Route: PO; k 09:12 Drug: azithromycin 500 mg [azithromycin 250 mg tablet (2 tabs)] Route: PO; travon Signatures: Dispatcher [employer] EDMS Donato Coronel,Temitope Banuelos RN, Reg Reg gb Mago Hoyos, Reg Reg lg Dayna Bazan, PA-C PA-C ef1 Risa Khan RN RN ead Nunez, NikkoleRN PB nn1 The chart was reviewed and I authenticate all verbal orders and agree with the evaluation and treatment provided.Corrections: (The following items were deleted from the chart) 07:16 07:08 [facility] [place] Nursing Order ordered. ef1 ef1 Attachments: 08:49 [facility] Payment Agreement lg 14:08 T-Sheet-- Draft Copy gb Chart Complete MTDD
== END 2016-05-10 09:18 | disposition home or self-care (01) ==
LOC: M ED 06:48
DX: R51 Headache (principal); J01.90 Acute sinusitis, unspecified; F17.210 Nicotine dependence, cigarettes, uncomplicated

== ENCOUNTER 2016-05-30 08:26 | Emergency (ER) | payer OTHER ==
--- NOTE | 2016-05-30 09:47 | EDDOCDS ---
Nurse's Notes [facility] Name: Cliff Vasquez Age: 21 yrs Sex: Male : 1995 Arrival Date: 05/30/2016 Time: 08:26 Bed I5 / M5 Private MD: Diagnosis: Headache;Low back pain Presentation: 05/30 08:30 Presenting complaint: Patient states: headache with nausea for 2 weeks. Reports kr3 intermittent backache for 2 weeks. Acute neurological deficits are not present. Mechanism of Injury: No Mechanism of Injury. Adult Sepsis Screening: The patient does not have new or worsening altered mentation. Patient's respiratory rate is less than 22. Systolic blood pressure is greater than 100. Patient has a qSOFA score of 0- Negative Sepsis Screen. Suicide/Homicide risk assessment- the patient denies having any suicidal and/or homicidal ideations and does not present with any other emotional, behavioral or mental health complaints. 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 Transition of care: patient was not received from another setting of care. 08:30 Acuity: SUZETTE Level 4 kr3 08:30 Method Of Arrival: Walkin/Carried/Asstd kr3 Triage Assessment: 08:32 General: Appears in no apparent distress, comfortable, Behavior is cooperative. Pain: kr3 Location: posterior cervical area and low back area Pain currently is 7 out of 10 on a pain scale. Pt Declines HIV testing. Neurological: Level of Consciousness is awake, alert, Reports headache. Respiratory: Respiratory effort is even, unlabored. GI: Reports nausea. : Denies burning with urination, urinary frequency, urgency. Derm: Skin is normal. Musculoskeletal: Range of motion intact in all extremities. Historical: - Allergies: no known allergies; - Home Meds: 1. ibuprofen 800 mg Oral tab daily (Last dose: 05/29/2016) - PMHx: none; - PSHx: none; - Social history: Smoking status: Patient uses tobacco products, current every day smoker. No barriers to communication noted, The patient speaks fluent Kazakh, Speaks appropriately for age. - Family history: Not pertinent. - : The pt / caregiver states he / she is not on anticoagulants. Home medication list is obtained from the patient. - Exposure Risk Screening:: None identified. Screenin:22 Screening information is obtained from the patient. Fall risk: No risks identified. [facility] Assistance ADL's: requires no assistance with activities of daily living. Abuse/DV Screen: The patient / caregiver reports he/she is: not in a situation that causes fear, pain or injury. Nutritional screening: No deficits noted. Advance Directives: Currently, there is no health care proxy. There is no active DNR order. There is no living will. There is no Power of Hire Car Driver. Advance directive information has not previously been placed in an [facility] medical record. Further advance directive information is declined. home support is adequate. Assessment: 09:22 General: Appears in no apparent distress, well nourished, well groomed, Behavior is kpj appropriate for age, pleasant. Pain: Location: back of neck and low back area Pain currently is 6 out of 10 on a pain scale. Neurological: Level of Consciousness is awake, alert, Oriented to person, place, time. Respiratory: Airway is patent Respiratory effort is even, unlabored, Respiratory pattern is regular, symmetrical, Breath sounds are clear bilaterally. GI: No deficits noted. Derm: Skin is pink, warm & dry. Musculoskeletal: cervical spine is tender. Reports pain in low back area and posterior cervical area Pain is 6 out of 10 on a pain scale. Denies weakness, numbness. 09:44 Reassessment: Patient appears in no apparent distress at this time. Pain: Location: low kpj back area and posterior cervical area Pain currently is 7 out of 10 on a pain scale. Neurological: Level of Consciousness is awake, alert, Oriented to person, place, time. Respiratory: Airway is patent Respiratory effort is even, unlabored. Derm: Skin is pink, warm & dry. Musculoskeletal: Circulation, motion, and sensation intact Capillary refill < 3 seconds in bilateral fingers No deformity noted Swelling absent Reports pain in low back area and posterior cervical area Pain is 7 out of 10 on a pain scale. Denies weakness, numbness. Vital Signs: 08:32 BP 140 / 68; Pulse 80; Resp 16; Temp 99.5(O); Pulse Ox 100% on R/A; Weight 105.23 kg kr3 (R); Height 5 ft. 5 in. (165.10 cm) (R); 09:43 BP 147 / 78; Pulse 79; Resp 18; Temp 96.8(T); Pulse Ox 97% on R/A; Pain 7/10; mcp 08:32 Body Mass Index 38.61 (105.23 kg, 165.10 cm) kr3 Vitals: 08:32 Log In Time: May 30, 2016 at 08:24. kr3 ED Course: 08:28 Patient visited by Mago Hoyos Reg. lg 08:28 Patient moved to Waiting lg 08:31 Triage Initiated kr3 08:35 Patient moved to I5 / M5 kr3 08:51 Micha Montes PA-C is PHCP. cc10 08:51 Jt Perea MD is Attending Physician. cc10 09:02 Patient visited by Micha Montes PA-C. cc10 09:02 Patient visited by Micha Montes PA-C. cc10 09:22 Resting quietly. Awaiting disposition. kpj 09:22 The patient / caregiver is instructed regarding the plan of care and ED course. Patient j has correct armband on for positive identification. 09:29 Fingerstick Blood Sugar Sent. kpj 09:38 Jackelin Sosa [facility] is Referral Physician. cc10 09:43 Patient visited by Radha Harvey RN. [facility] 09:44 No IV's were initiated during this patient's visit. No procedures done that require [facility] assistance. Point of Care Testing: Blood Glucose: 09:21 Blood Glucose: 94 mg/dL; [facility] Ranges: Order Results: Lab Order: Fingerstick Blood Sugar; SPEC'M 05/30/16 09:20 Test: BEDSIDE GLUCOSE; Value: 94; Range: 70-105; Units: MG/DL; Status: F Outcome: 09:38 Discharge ordered by Provider. cc10 09:44 Discharge Assessment: Patient awake, alert and oriented x 3. No cognitive and/or kpj functional deficits noted. Patient verbalized understanding of disposition instructions. patient administered narcotics - no. The following High Risk Discharge criteria are identified: None. Discharged to home ambulatory, with significant other. Condition: stable. Discharge instructions given to patient, Instructed on discharge instructions, follow up and referral plans. medication usage, no driving heavy equipment, Use of warm compresses to the affected area, no drinking with medication, Demonstrated understanding of instructions, medications, Pt was receptive of discharge instructions/ teaching. Prescriptions given X 2. No special radiology studies were completed. Property sent home with patient. 09:47 Patient left the ED. kpj Signatures: Shakira Weller RN RN Radha Lara, RN RN Mago Tamayo Reg Reg lg Robie, Kathleen,RN RN kr3 Micha Montes PA-C PA-C cc10 MTDD
--- NOTE | 2016-05-30 09:47 | EDDOCDS ---
Physician Documentation [facility] Name: Cliff Vasquez Age: 21 yrs Sex: Male : 1995 Arrival Date: 05/30/2016 Time: 08:26 Bed I5 / M5 Private MD: Disposition: 05/30/16 09:38 Discharged to Home/Self Care. Impression: Headache, Low back pain. - Condition is Stable. - Discharge Instructions: Back Pain, Adult, General Headache Without Cause. - Prescriptions for Naprosyn 500 mg Oral Tablet - take 1 tablet by ORAL route 2 times per day take with food; 30 tablet. Cyclobenzaprine 10 mg Oral Tablet - take 1 tablet by ORAL route 3 times per day As needed; 15 tablet. - Medication Reconciliation form. - Follow up: Jackelin Sosa [facility]; When: Call to arrange an appointment; Reason: Wound/Symptom Recheck, Recheck today's complaints, Continuance of care. - Problem is an ongoing problem. - Symptoms are unchanged. Historical: - Allergies: no known allergies; - Home Meds: 1. ibuprofen 800 mg Oral tab daily (Last dose: 05/29/2016) - PMHx: none; - PSHx: none; - Social history: Smoking status: Patient uses tobacco products, current every day smoker. No barriers to communication noted, The patient speaks fluent Slovak, Speaks appropriately for age. - Family history: Not pertinent. - : The pt / caregiver states he / she is not on anticoagulants. Home medication list is obtained from the patient. - Exposure Risk Screening:: None identified. Vital Signs: 05/30 08:32 BP 140 / 68; Pulse 80; Resp 16; Temp 99.5(O); Pulse Ox 100% on R/A; Weight 105.23 kg / kr3 231.99 lbs (R); Height 5 ft. 5 in. (165.10 cm) (R); 09:43 BP 147 / 78; Pulse 79; Resp 18; Temp 96.8(T); Pulse Ox 97% on R/A; Pain 7/10; mcp 08:32 Body Mass Index 38.61 (105.23 kg, 165.10 cm) kr3 MDM: 09:08 Accucheck ordered. cc10 09:28 Fingerstick Blood Sugar Ordered. EDMS 09:33 Financial registration complete. lg Point of Care Testing: Blood Glucose: 09:21 Blood Glucose: 94 mg/dL; [facility] Ranges: Signatures: Dispatcher [employer] Shakira Dick RN RN adrianaj Mago Hoyos Reg Reg lg Robie, Kathleen,RN RN kr3 Micha Montes, PASebastiánC PASebastiánC cc10 MTDD
--- NOTE | 2016-06-01 10:48 | EDDOCDS ---
Physician Documentation [facility] Name: Cliff Vasquez Age: 21 yrs Sex: Male : 1995 Arrival Date: 05/30/2016 Time: 08:26 Bed I5 / M5 Private MD: Disposition: 05/30/16 09:38 Discharged to Home/Self Care. Impression: Headache, Low back pain. - Condition is Stable. - Discharge Instructions: Back Pain, Adult, General Headache Without Cause. - Prescriptions for Naprosyn 500 mg Oral Tablet - take 1 tablet by ORAL route 2 times per day take with food; 30 tablet. Cyclobenzaprine 10 mg Oral Tablet - take 1 tablet by ORAL route 3 times per day As needed; 15 tablet. - Medication Reconciliation form. - Follow up: Jackelin Sosa [facility]; When: Call to arrange an appointment; Reason: Wound/Symptom Recheck, Recheck today's complaints, Continuance of care. - Problem is an ongoing problem. - Symptoms are unchanged. Historical: - Allergies: no known allergies; - Home Meds: 1. ibuprofen 800 mg Oral tab daily (Last dose: 05/29/2016) - PMHx: none; - PSHx: none; - Social history: Smoking status: Patient uses tobacco products, current every day smoker. No barriers to communication noted, The patient speaks fluent Maori, Speaks appropriately for age. - Family history: Not pertinent. - : The pt / caregiver states he / she is not on anticoagulants. Home medication list is obtained from the patient. - Exposure Risk Screening:: None identified. Vital Signs: 05/30 08:32 BP 140 / 68; Pulse 80; Resp 16; Temp 99.5(O); Pulse Ox 100% on R/A; Weight 105.23 kg / kr3 231.99 lbs (R); Height 5 ft. 5 in. (165.10 cm) (R); 09:43 BP 147 / 78; Pulse 79; Resp 18; Temp 96.8(T); Pulse Ox 97% on R/A; Pain 7/10; mcp 08:32 Body Mass Index 38.61 (105.23 kg, 165.10 cm) kr3 MDM: 09:08 Accucheck ordered. cc10 09:28 Fingerstick Blood Sugar Ordered. EDMS 09:33 Financial registration complete. lg 10:00 [facility] Payment Agreement was scanned into [employer] and attached to record. lg 05/31 13:02 T-Sheet-- Draft Copy was scanned into [employer] and attached to record. aleksandr Point of Care Testing: Blood Glucose: 05/30 09:21 Blood Glucose: 94 mg/dL; [facility] Ranges: Signatures: Dispatcher [employer] Shakira Dick RN RN kpj Temitope Krishnan, Reg Reg gb Mago Hoyos, Reg Reg lg Zita Martínez,RN RN kr3 Micha Montes, PA-C PA-C cc10 The chart was reviewed and I authenticate all verbal orders and agree with the evaluation and treatment provided.Attachments: 10:00 [facility] Payment Agreement 05/31 13:02 T-Sheet-- Draft Copy gb Chart Complete MTDD
--- NOTE | 2016-06-01 10:48 | EDDOCDS ---
Nurse's Notes [facility] Name: Cliff Vasquez Age: 21 yrs Sex: Male : 1995 Arrival Date: 05/30/2016 Time: 08:26 Bed I5 / M5 Private MD: Diagnosis: Headache;Low back pain Presentation: 05/30 08:30 Presenting complaint: Patient states: headache with nausea for 2 weeks. Reports kr3 intermittent backache for 2 weeks. Acute neurological deficits are not present. Mechanism of Injury: No Mechanism of Injury. Adult Sepsis Screening: The patient does not have new or worsening altered mentation. Patient's respiratory rate is less than 22. Systolic blood pressure is greater than 100. Patient has a qSOFA score of 0- Negative Sepsis Screen. Suicide/Homicide risk assessment- the patient denies having any suicidal and/or homicidal ideations and does not present with any other emotional, behavioral or mental health complaints. 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 Transition of care: patient was not received from another setting of care. 08:30 Acuity: SUZETTE Level 4 kr3 08:30 Method Of Arrival: Walkin/Carried/Asstd kr3 Triage Assessment: 08:32 General: Appears in no apparent distress, comfortable, Behavior is cooperative. Pain: kr3 Location: posterior cervical area and low back area Pain currently is 7 out of 10 on a pain scale. Pt Declines HIV testing. Neurological: Level of Consciousness is awake, alert, Reports headache. Respiratory: Respiratory effort is even, unlabored. GI: Reports nausea. : Denies burning with urination, urinary frequency, urgency. Derm: Skin is normal. Musculoskeletal: Range of motion intact in all extremities. Historical: - Allergies: no known allergies; - Home Meds: 1. ibuprofen 800 mg Oral tab daily (Last dose: 05/29/2016) - PMHx: none; - PSHx: none; - Social history: Smoking status: Patient uses tobacco products, current every day smoker. No barriers to communication noted, The patient speaks fluent Croatian, Speaks appropriately for age. - Family history: Not pertinent. - : The pt / caregiver states he / she is not on anticoagulants. Home medication list is obtained from the patient. - Exposure Risk Screening:: None identified. Screenin:22 Screening information is obtained from the patient. Fall risk: No risks identified. [facility] Assistance ADL's: requires no assistance with activities of daily living. Abuse/DV Screen: The patient / caregiver reports he/she is: not in a situation that causes fear, pain or injury. Nutritional screening: No deficits noted. Advance Directives: Currently, there is no health care proxy. There is no active DNR order. There is no living will. There is no Power of Naphthalene Still Operator. Advance directive information has not previously been placed in an [facility] medical record. Further advance directive information is declined. home support is adequate. Assessment: 09:22 General: Appears in no apparent distress, well nourished, well groomed, Behavior is kpj appropriate for age, pleasant. Pain: Location: back of neck and low back area Pain currently is 6 out of 10 on a pain scale. Neurological: Level of Consciousness is awake, alert, Oriented to person, place, time. Respiratory: Airway is patent Respiratory effort is even, unlabored, Respiratory pattern is regular, symmetrical, Breath sounds are clear bilaterally. GI: No deficits noted. Derm: Skin is pink, warm & dry. Musculoskeletal: cervical spine is tender. Reports pain in low back area and posterior cervical area Pain is 6 out of 10 on a pain scale. Denies weakness, numbness. 09:44 Reassessment: Patient appears in no apparent distress at this time. Pain: Location: low kpj back area and posterior cervical area Pain currently is 7 out of 10 on a pain scale. Neurological: Level of Consciousness is awake, alert, Oriented to person, place, time. Respiratory: Airway is patent Respiratory effort is even, unlabored. Derm: Skin is pink, warm & dry. Musculoskeletal: Circulation, motion, and sensation intact Capillary refill < 3 seconds in bilateral fingers No deformity noted Swelling absent Reports pain in low back area and posterior cervical area Pain is 7 out of 10 on a pain scale. Denies weakness, numbness. Vital Signs: 08:32 BP 140 / 68; Pulse 80; Resp 16; Temp 99.5(O); Pulse Ox 100% on R/A; Weight 105.23 kg kr3 (R); Height 5 ft. 5 in. (165.10 cm) (R); 09:43 BP 147 / 78; Pulse 79; Resp 18; Temp 96.8(T); Pulse Ox 97% on R/A; Pain 7/10; mcp 08:32 Body Mass Index 38.61 (105.23 kg, 165.10 cm) kr3 Vitals: 08:32 Log In Time: May 30, 2016 at 08:24. kr3 ED Course: 08:28 Patient visited by Mago Hoyos Reg. lg 08:28 Patient moved to Waiting lg 08:31 Triage Initiated kr3 08:35 Patient moved to I5 / M5 kr3 08:51 Micha Montes PA-C is PHCP. cc10 08:51 Jt Perea MD is Attending Physician. cc10 09:02 Patient visited by Micha Montes PA-C. cc10 09:02 Patient visited by Micha Montes PA-C. cc10 09:22 Resting quietly. Awaiting disposition. kpj 09:22 The patient / caregiver is instructed regarding the plan of care and ED course. Patient kpj has correct armband on for positive identification. 09:29 Fingerstick Blood Sugar Sent. kpj 09:38 Jack[facility] Sosa [facility] is Referral Physician. cc10 09:43 Patient visited by Radha Harvey RN. [facility] 09:44 No IV's were initiated during this patient's visit. No procedures done that require kpj assistance. 10:00 [facility] Payment Agreement was scanned into [employer] and attached to record. 05/31 13:02 T-Sheet-- Draft Copy was scanned into [employer] and attached to record. Point of Care Testing: Blood Glucose: 05/30 09:21 Blood Glucose: 94 mg/dL; j Ranges: Order Results: Lab Order: Fingerstick Blood Sugar; SPEC'M 05/30/16 09:20 Test: BEDSIDE GLUCOSE; Value: 94; Range: 70-105; Units: MG/DL; Status: F Outcome: 09:38 Discharge ordered by Provider. cc10 09:44 Discharge Assessment: Patient awake, alert and oriented x 3. No cognitive and/or kpj functional deficits noted. Patient verbalized understanding of disposition instructions. patient administered narcotics - no. The following High Risk Discharge criteria are identified: None. Discharged to home ambulatory, with significant other. Condition: stable. Discharge instructions given to patient, Instructed on discharge instructions, follow up and referral plans. medication usage, no driving heavy equipment, Use of warm compresses to the affected area, no drinking with medication, Demonstrated understanding of instructions, medications, Pt was receptive of discharge instructions/ teaching. Prescriptions given X 2. No special radiology studies were completed. Property sent home with patient. 09:47 Patient left the ED. [facility] Signatures: Shakira Weller, RN RN Radha Lara RN RN Temitope Chow, Reg Reg gb Mago Hoyos, Reg Reg lg Zita MartínezRN RN Micha Romano, PA-C PA-C cc10 Chart Complete MTDD
--- NOTE | 2016-06-01 10:48 | EDDOCDS ---
Physician Documentation [facility] Name: Cliff Vasquez Age: 21 yrs Sex: Male : 1995 Arrival Date: 05/30/2016 Time: 08:26 Bed I5 / M5 Private MD: Disposition: 05/30/16 09:38 Discharged to Home/Self Care. Impression: Headache, Low back pain. - Condition is Stable. - Discharge Instructions: Back Pain, Adult, General Headache Without Cause. - Prescriptions for Naprosyn 500 mg Oral Tablet - take 1 tablet by ORAL route 2 times per day take with food; 30 tablet. Cyclobenzaprine 10 mg Oral Tablet - take 1 tablet by ORAL route 3 times per day As needed; 15 tablet. - Medication Reconciliation form. - Follow up: Jackelin Sosa [facility]; When: Call to arrange an appointment; Reason: Wound/Symptom Recheck, Recheck today's complaints, Continuance of care. - Problem is an ongoing problem. - Symptoms are unchanged. Historical: - Allergies: no known allergies; - Home Meds: 1. ibuprofen 800 mg Oral tab daily (Last dose: 05/29/2016) - PMHx: none; - PSHx: none; - Social history: Smoking status: Patient uses tobacco products, current every day smoker. No barriers to communication noted, The patient speaks fluent Turkmen, Speaks appropriately for age. - Family history: Not pertinent. - : The pt / caregiver states he / she is not on anticoagulants. Home medication list is obtained from the patient. - Exposure Risk Screening:: None identified. Vital Signs: 05/30 08:32 BP 140 / 68; Pulse 80; Resp 16; Temp 99.5(O); Pulse Ox 100% on R/A; Weight 105.23 kg / kr3 231.99 lbs (R); Height 5 ft. 5 in. (165.10 cm) (R); 09:43 BP 147 / 78; Pulse 79; Resp 18; Temp 96.8(T); Pulse Ox 97% on R/A; Pain 7/10; mcp 08:32 Body Mass Index 38.61 (105.23 kg, 165.10 cm) kr3 MDM: 09:08 Accucheck ordered. cc10 09:28 Fingerstick Blood Sugar Ordered. EDMS 09:33 Financial registration complete. lg 10:00 [facility] Payment Agreement was scanned into [employer] and attached to record. lg 05/31 13:02 T-Sheet-- Draft Copy was scanned into [employer] and attached to record. aleksandr Point of Care Testing: Blood Glucose: 05/30 09:21 Blood Glucose: 94 mg/dL; [facility] Ranges: Signatures: Dispatcher [employer] Shakira Dick RN RN kpj Temitope Krishnan, Reg Reg gb Mago Hoyos, Reg Reg lg Zita Martínez,RN RN kr3 Micha Montes, PA-C PA-C cc10 The chart was reviewed and I authenticate all verbal orders and agree with the evaluation and treatment provided.Attachments: 10:00 [facility] Payment Agreement 05/31 13:02 T-Sheet-- Draft Copy gb Chart Complete MTDD
== END 2016-05-30 09:47 | disposition home or self-care (01) ==
LOC: M ED 08:26
DX: R51 Headache (principal); M54.5 Low back pain; R11.2 Nausea with vomiting, unspecified; R53.83 Other fatigue; F17.210 Nicotine dependence, cigarettes, uncomplicated; Z79.1 Long term (current) use of non-steroidal anti-inflammatories (NSAID)

== ENCOUNTER 2016-12-09 15:28 | Emergency (ER) | payer OTHER ==
[~2016-12-09] VITALS: Ht 165.1 cm; Wt 102.3 kg
[2016-12-09] MEDS ORDERED: IBUP-1114 PO (15:44)
[2016-12-09 17:04] VITALS: BP 155/73
== END 2016-12-09 17:22 | disposition home or self-care (01) ==
LOC: M ED 15:28
DX: F41.1 Generalized anxiety disorder (principal); F43.12 Post-traumatic stress disorder, chronic; F17.200 Nicotine dependence, unspecified, uncomplicated; Z79.899 Other long term (current) drug therapy